=== PATIENT | female | born 1970 | race Caucasian/White ===

== ENCOUNTER 2020-06-03 23:31 | Emergency (ER) | payer BC ==
[~2020-06-03] VITALS: Ht 154.9 cm; Wt 59.0 kg
[2020-06-03 23:33] VITALS: BP 145/71; Ht 154.9 cm; Wt 59.0 kg
== END 2020-06-04 00:20 | disposition home or self-care (01) ==
LOC: ED 23:31
DX: U07.1 COVID-19 (principal); Z88.0 Allergy status to penicillin

== ENCOUNTER 2020-08-23 14:37 | Emergency (ER) | payer BC ==
[~2020-08-23] VITALS: Ht 152.4 cm; Wt 56.7 kg
[2020-08-23 14:43] VITALS: Ht 152.4 cm; Wt 56.7 kg
[2020-08-23 16:10] VITALS: BP 110/70
== END 2020-08-23 16:10 | disposition home or self-care (01) ==
LOC: ED 14:37
DX: S61.012A Laceration without foreign body of left thumb without damage to nail, initial encounter (principal); Z88.0 Allergy status to penicillin; W45.8XXA Other foreign body or object entering through skin, initial encounter; Y93.89 Activity, other specified; Y92.89 Other specified places as the place of occurrence of the external cause; Y99.8 Other external cause status
CPT/HCPCS: J2001